=== PATIENT | male | born 1990 | race Caucasian/White ===

== ENCOUNTER 2019-07-23 23:52 | Emergency (ER) | payer SELFPAY ==
[~2019-07-23] VITALS: Ht 162.6 cm; Wt 73.0 kg
[2019-07-24 00:12] VITALS: BP 138/80
[2019-07-24] MEDS ORDERED: KETOROLAC 30MG/ML VIAL IM ONE (00:45)
[2019-07-24] MEDS ORDERED: HYDROCODONE/ACETAMINOPHEN 5/325MG TABLET PO ONE (00:45)
== END 2019-07-24 01:22 | disposition home or self-care (01) ==
LOC: ER 23:52
DX: K08.89 Other specified disorders of teeth and supporting structures (principal)
CPT/HCPCS: 96372; 99283; J1885